=== PATIENT | male | born 1945 | race Caucasian/White ===

== ENCOUNTER → 2022-12-22 10:12 | Outpatient (BNVA) | payer MEDICARE, OTHER, SELFPAY | PROVIDERS: PCP Internal Medicine; Visit Provider Urology | DX: R97.20 Elevated prostate specific antigen [PSA] (principal); N40.1 Benign prostatic hyperplasia with lower urinary tract symptoms; N13.8 Other obstructive and reflux uropathy; R33.9 Retention of urine, unspecified; Z79.899 Other long term (current) drug therapy | CPT/HCPCS: 99202 ==

== ENCOUNTER 2023-04-25 15:28 | Outpatient (AMB) | payer MEDICARE, OTHER, SELFPAY ==
--- NOTE | 2023-04-25 15:28 | MHC.OFFVIS ---
Intake Intake Visit Reasons: 4M PSA(SET) Intake Note: Patient is present for Telephone PSA Urology Med: Finasteride, Tamsulosin Antibiotic Allergy:None Blood Thinner: None Pharmacy: [facility] Allergies No Known Allergies Allergy (Verified 12/22/22 10:36) Medication List - Last Reconciled 04/25/23 by Dimitry Epps MD finasteride 5 mg PO DAILY 90 days lancets (Accu-Chek Fastclix Lancet Drum) As directed losartan 25 mg PO DAILY metformin 1,000 mg PO BID rosuvastatin 20 mg PO DAILY semaglutide (Rybelsus) 7 mg PO DAILY tamsulosin 0.4 mg PO DAILY HPI HPI Comments History of Present Illness Details Gael is a pleasant male. He is a patient of Dr. Juarez.. He is seen for the following urologic conditions - elevated PSA Telemedicine Evaluation 15 min Consultation [facility] [place] Video attempted Nocturia x1 Subtle improvement with flow Significant fall in PSA Continue current medications Six month follow-up Elevated PSA/lower urinary tract symptoms He presents for - Initial evaluation of elevated PSA - has had prior evaluation with another urologist Lower Urinary Tract Symptoms include - feels voiding parameters a relatively stable - on tamsulosin Investigations include - PSA - 10/02 5.0, 05/02 2.3 - ANTONIA 2+ no nodules Individualized Prostate Cancer Risk Calculator - PCPT Calculator - 11% high-grade Associated conditions include single agent diabetes control, dyslipidemia Therapeutic plan will be - finasteride if repeat PSA Review of Systems Const All systems reviewed & are unremarkable except as noted in HPI and below Reports no additional complaints Resp Reports no additional complaints GI Reports no additional complaints Reports as per HPI Musc Reports no additional complaints Physical Exam Telemedicine evaluation Appropriate responses Regular breathing rate and rhythm HEENT Head: Yes normal to inspection Ears: hearing grossly normal bilaterally Eyes General: appearance normal, both eyes and all related structures Neck Neck: Yes normal visual inspection Chest Chest palpation & inspection: normal inspection of the chest Resp Effort & Inspection: normal respiratory effort and able to speak in complete sentences Assessment & Plan Assessment & Plan (1) Bladder outlet obstruction: Code(s): N32.0 - Bladder-neck obstruction (2) Elevated PSA: Code(s): R97.20 - Elevated prostate specific antigen [PSA] Plan Six month follow-up PSA Orders: Orders Prostate Specific Antigen 6 Months N32.0 - Bladder-neck obstruction Medications: Refilled finasteride 5 mg PO DAILY 90 days 90 tabs 1RF N40.1 - Benign prostatic hyperplasia with lower urinary tract symptoms, R97.20 - Elevated prostate specific antigen [PSA] Patient Instructions: Imaging studies, laboratory and physical exam results were discussed and reviewed in detail. No major barriers to patient understanding were identified. An opportunity to ask questions regarding the treatment plan was provided. All questions were answered. The patient expressed understanding and agreement with the above treatment plan. The patient is aware they should contact our office by phone for worsening of their current condition or the appearance of new urologic symptoms. Compliance is encouraged with any medications and followup testing that is ordered. It is a privilege to participate in the urologic care of your patient. If you have any questions or concerns regarding treatment for the above conditions, or other urologic issues, please do not hesitate to contact me. The office telephone contact is [phone]. This note is constructed using voice recognition software. While every effort has been made to ensure accuracy can cleaner errors may have been included. Yours sincerely, Dr Dimitry Epps MD, [facility] - Urology Providers of Expert, Compassionate Care for the Genitourinary System Telehealth Telehealth Location of provider rendering services: practice address Location of patient: address on file Patient Identification confirmed using: Name, : Yes Telehealth method: video Patient verbally consented to treatment: Yes Patient verbally consented to billing insurance company: Yes Patient informed of any privacy concerns related to visit: Yes Coding Level of Care Code Tele Est Pt Level 3 (19564) Diagnoses Bladder outlet obstruction N32.0 Elevated PSA R97.20
== END 2023-04-25 16:27 | disposition home or self-care (01) ==
LOC: HO.HUSH 15:28
PROVIDERS: PCP Internal Medicine; Visit Provider Urology
DX: R97.20 Elevated prostate specific antigen [PSA] (principal); N32.0 Bladder-neck obstruction
CPT/HCPCS: 99213

== ENCOUNTER → 2023-04-25 15:28 | Outpatient (BNVA) | payer MEDICARE, OTHER, SELFPAY | PROVIDERS: PCP Internal Medicine; Visit Provider Urology | DX: N32.0 Bladder-neck obstruction (principal); R97.20 Elevated prostate specific antigen [PSA]; Z79.899 Other long term (current) drug therapy | CPT/HCPCS: Q3014 ==

== ENCOUNTER 2023-12-18 11:03 | Outpatient (AMB) | payer MEDICARE, OTHER, SELFPAY ==
--- NOTE | 2023-12-18 11:11 | A.OFFVIS_ITS ---
Intake Intake Visit Reasons: 6M PSA(set)Confirmed Intake Note: Patient is Present for Follow Up Urology Medication: Finasteride Antibiotic Allergies: None Blood Thinners:None Allergies No Known Allergies Allergy (Verified 12/18/23 11:12) Medication List - Last Reconciled 12/18/23 by Dimitry Epps MD finasteride 5 mg PO DAILY 90 days lancets (Accu-Chek Fastclix Lancet Drum) As directed losartan 25 mg PO DAILY metformin 1,000 mg PO BID rosuvastatin 20 mg PO DAILY semaglutide (Rybelsus) 7 mg PO DAILY tamsulosin 0.4 mg PO DAILY HPI HPI Comments History of Present Illness Details Gael is a pleasant male. He is a patient of Dr. Juarez. He is seen for the following urologic conditions - elevated PSA Six-month follow-up Continues with finasteride and tamsulosin PSA 1.7 Follow in 12 months with PSA and PVR Make cut back on finasteride to Sunday, Sunday, Sunday Elevated PSA/lower urinary tract symptoms He presents for - Initial evaluation of elevated PSA - has had prior evaluation with another urologist Lower Urinary Tract Symptoms include - feels voiding parameters a relatively stable - on tamsulosin and finasteride Investigations include - PSA - 10/02 5.0, 05/02 2.3, 12/01 1.7 - ANTONIA 2+ no nodules Individualized Prostate Cancer Risk Calculator - PCPT Calculator - 11% high-grade Associated conditions include single agent diabetes control, dyslipidemia Therapeutic plan will be - continue six-month surveillance [facility] Medical History Arthritis Enlarged prostate Diabetes mellitus, type II Diabetes mellitus Hyperlipidemia HTN (hypertension) Surgical History History of vasectomy History of hernia repair Review of Systems Const Denies chills and Denies fever(s) Card Reports no additional complaints and Denies syncope Resp Denies cough GI Denies abdominal pain and Denies heartburn Reports as per HPI and Denies change in libido Neuro Denies syncope Psych Denies change in libido Endo Denies change in libido Physical Exam Const General: cooperative, healthy appearing, comfortable and no acute distress Orientation/consciousness: patient oriented x3 HEENT Face and sinus: Yes normal facial exam Mouth: moist mucous membranes Neck Neck: Yes normal visual inspection, Yes full ROM and Yes trachea midline Chest Chest palpation & inspection: normal inspection of the chest Resp Effort & Inspection: normal respiratory effort, able to speak in complete sentences and no respiratory distress GI Inspection: Yes normal to inspection Back/Spine/Pelvis Cervical Spine: normal cervical lordosis Thoracic/Lumbar Spine: thoracic and lumbar spine normal to inspection Skin General skin exam: no rashes or lesions noted Neuro General: patient oriented x3, gait normal, tone normal and moves all extremities Extrem General: Yes normal to inspection and Yes capillary refill normal Assessment & Plan Assessment & Plan (1) Bladder outlet obstruction: Code(s): N32.0 - Bladder-neck obstruction (2) Elevated PSA: Code(s): R97.20 - Elevated prostate specific antigen [PSA] Plan 12 month follow-up PVR and PSA Orders: Orders Prostate Specific Antigen 364 Days R97.20 - Elevated prostate specific antigen [PSA] Medications: Changed From tamsulosin 0.4 mg PO DAILY N32.0 - Bladder-neck obstruction To tamsulosin 0.4 mg PO DAILY 90 caps 3RF 90 days N32.0 - Bladder-neck obstruction Refilled finasteride 5 mg PO DAILY 90 tabs 1RF 90 days N40.1 - Benign prostatic hyperplasia with lower urinary tract symptoms, R97.20 - Elevated prostate specific antigen [PSA] Patient Instructions: Imaging studies, laboratory and physical exam results were discussed and reviewed in detail. No major barriers to patient understanding were identified. An opportunity to ask questions regarding the treatment plan was provided. All questions were answered. The patient expressed understanding and agreement with the above treatment plan. The patient is aware they should contact our office by phone for worsening of their current condition or the appearance of new urologic symptoms. Compliance is encouraged with any medications and followup testing that is ordered. It is a privilege to participate in the urologic care of your patient. If you have any questions or concerns regarding treatment for the above conditions, or other urologic issues, please do not hesitate to contact me. The office telephone contact is [phone]. This note is constructed using voice recognition software. While every effort has been made to ensure accuracy care process manager errors may have been included. Yours sincerely, Dr Dimitry Epps MD, [facility] - Urology Providers of Expert, Compassionate Care for the Genitourinary System Coding Level of Care Code Est Pt Level 3 (37932) Diagnoses Bladder outlet obstruction N32.0 Elevated PSA R97.20
== END 2023-12-18 11:41 | disposition home or self-care (01) ==
PROVIDERS: PCP Internal Medicine; Visit Provider Urology
DX: N32.0 Bladder-neck obstruction (principal); R97.20 Elevated prostate specific antigen [PSA]
CPT/HCPCS: 99213

== ENCOUNTER → 2023-12-18 11:03 | Outpatient (BNVA) | payer MEDICARE, OTHER, SELFPAY | PROVIDERS: PCP Internal Medicine; Visit Provider Urology | DX: N32.0 Bladder-neck obstruction (principal); R97.20 Elevated prostate specific antigen [PSA] | CPT/HCPCS: 99212 ==

== ENCOUNTER 2024-12-18 11:14 | Outpatient (AMB) | payer MEDICARE, OTHER, SELFPAY ==
--- NOTE | 2024-12-18 11:53 | MHC.OFFVIS ---
Intake Visit Reasons: 1y/PSA/PVR Intake Note: Patient is Present for 1Y Follow Up/PSA/PVR Urology Medication: Finasteride,TAMSULOSIN Antibiotic Allergies: None Blood Thinners:None TODAY'S PVR: 0ML'S [employer] Required: No Allergies No Known Allergies Allergy (Verified 12/18/24 11:54) HPI Comments Details: Gael is a pleasant male. He is a patient of Dr. Juarez. He is seen for the following urologic conditions - elevated PSA Yearly follow-up 0 cc Had, finasteride six-month ago PSA has slid up to 4 ANTONIA normal Restart finasteride Six-month follow-up PSA Elevated PSA/lower urinary tract symptoms He presents for - Initial evaluation of elevated PSA - has had prior evaluation with another urologist Lower Urinary Tract Symptoms include - feels voiding parameters a relatively stable - on tamsulosin and finasteride Investigations include - PSA - 10/02 5.0, 05/02 2.3, 12/01 1.7, 01/02 4.3 - ANTONIA 2+ no nodules Individualized Prostate Cancer Risk Calculator - PCPT Calculator - 11% high-grade Associated conditions include single agent diabetes control, dyslipidemia Therapeutic plan will be - continue six-month surveillance [facility] Medical History Arthritis Enlarged prostate Diabetes mellitus, type II Diabetes mellitus Hyperlipidemia HTN (hypertension) Surgical History History of vasectomy History of hernia repair Review of Systems Const Denies chills and Denies fever(s) Card Reports no additional complaints and Denies syncope Resp Denies cough GI Denies abdominal pain and Denies heartburn Reports as per HPI and Denies change in libido Neuro Denies syncope Psych Denies change in libido Endo Denies change in libido Physical Exam Const General: cooperative, healthy appearing, comfortable and no acute distress Orientation/consciousness: patient oriented x3 HEENT Face and sinus: Yes normal facial exam Mouth: moist mucous membranes Neck Neck: Yes normal visual inspection, Yes full ROM and Yes trachea midline Chest Chest palpation & inspection: normal inspection of the chest Resp Effort & Inspection: normal respiratory effort, able to speak in complete sentences and no respiratory distress GI Inspection: Yes normal to inspection Rectal Exam - Male: Yes normal sphincter tone and Yes prostate normal Male General Exam: Yes normal external exam Penis: normal penis and circumcised Meatus: meatus normal Scrotum: scrotum normal Testes: Testes normal Back/Spine/Pelvis Cervical Spine: normal cervical lordosis Thoracic/Lumbar Spine: thoracic and lumbar spine normal to inspection Skin General skin exam: no rashes or lesions noted Neuro General: patient oriented x3, gait normal, tone normal and moves all extremities Extrem General: Yes normal to inspection and Yes capillary refill normal Office Procedures Post Void Residual Post Residual Void Post Void Residual (PVR): 0 [id number] Void Residual by ultrasound Assessment & Plan Assessment & Plan (1) Elevated PSA: Code(s): R97.20 - Elevated prostate specific antigen [PSA] Category: Medical (2) Bladder outlet obstruction: Code(s): N32.0 - Bladder-neck obstruction Category: Medical Plan Six-month follow-up PSA Restart finasteride Patient Instructions: This note is constructed using voice recognition software. While every effort has been made to ensure accuracy videotape sales representative errors may have been included. Imaging studies, laboratory and physical exam results were discussed and reviewed in detail. No major barriers to patient understanding were identified. An opportunity to ask questions regarding the treatment plan was provided. All questions were answered. The patient expressed understanding and agreement with the above treatment plan. The patient is aware they should contact our office by phone for worsening of their current condition or the appearance of new urologic symptoms. Compliance is encouraged with any medications and followup testing that is ordered. It is a privilege to participate in the urologic care of your patient. If you have any questions or concerns regarding treatment for the above conditions, or other urologic issues, please do not hesitate to contact me. The office telephone contact is [phone]. Sincerely, Dr Dimitry Epps MD, [facility] - Urology Compassionate Specialist Care for the Genitourinary System Coding Level of Care Code Est Pt Level 4 (94524) Complex EM visit Add On G2211 Diagnoses Elevated PSA R97.20 Bladder outlet obstruction N32.0 CPT Codes Post Residual Void - PVR CPT Code: 33273-Pvui Void Residual by ultrasound ([id number])
--- OUTSIDE RECORDS SUMMARY | 2024-12-18 13:38 | XMS_ITS | Clinical Summary ---
Author Organization [facility] Address [address] [place] [address] Phone Care Team Providers Care Security Architect Name Role Phone Geremias Juarez MD Primary Care Provider Social History Tobacco Use Types Packs/Day Years Used Date Smoking Tobacco: Never Assessed Sex and Gender Information Value Date Recorded Sex Assigned at Not on file Legal Sex Male 5:10 PM EST Gender Identity Not on file Sexual Orientation Not on file Plan of Treatment Health Maintenance Due Date Last Done Comments DTaP,Tdap,and Td Vaccines (1 - Tdap) 1965 Pneumococcal Vaccine: 50+ Ye ars (1 of 1 - PCV) 1996 Zoster Vaccines (1 of 2) 1996 RSV Immunization Adult Patie nts (1 - 1-dose 75+ series) 2021 Cholesterol Screening (Lipid Panel) 08/09/2022 Depression Screening 08/09/2022 Falls Risk Assessment 08/09/2022 Hepatitis C Screening 08/09/2022 Social Influencers of Health Screening 08/09/2022 COVID-19 Vaccine ( - 2023-2 5 season) 2024 Influenza Vaccine (Season Ended) 2025 HIB Vaccines Aged Out No longer eligi ble based on patient's age to complete this topic HPV Vaccines Aged Out No longer eligi ble based on patient's age to complete this topic Hepatitis A Vaccines Aged Out No long er eligible based on patient's age to complete this topic Hepatitis B Vaccines Aged Out No long er eligible based on patient's age to complete this topic IPV Vaccines Aged Out No longer eligi ble based on patient's age to complete this topic MMR Vaccines Aged Out No longer eligi ble based on patient's age to complete this topic Meningococcal ACWY Vaccine Aged Out N o longer eligible based on patient's age to complete this topic Meningococcal B Vaccine Aged Out No l onger eligible based on patient's age to complete this topic RSV Immunization Patients Un earnestine 20 months Aged Out No longer eligible b ased on patient's age to complete this topic Varicella Vaccines Aged Out No longer eligible based on patient's age to complete this topic Care Teams Security Architect Relationship Specialty Start Date End Date Geremias Juarez MD PCP - General Internal Medicine 12/10/17
== END 2024-12-18 12:24 | disposition home or self-care (01) ==
LOC: HO.HUSH 11:15
PROVIDERS: PCP Internal Medicine; Visit Provider Urology
DX: R97.20 Elevated prostate specific antigen [PSA] (principal); N32.0 Bladder-neck obstruction
CPT/HCPCS: 99214; G2211

== ENCOUNTER → 2024-12-18 11:14 | Outpatient (BNVA) | payer MEDICARE, OTHER, SELFPAY | PROVIDERS: PCP Internal Medicine; Visit Provider Urology | DX: R97.20 Elevated prostate specific antigen [PSA] (principal); N32.0 Bladder-neck obstruction | CPT/HCPCS: 51798; 99212 ==